=== PATIENT | male | born 1955 | race Caucasian/White ===

== ENCOUNTER 2022-08-28 08:00 | Outpatient (RCR) | payer MEDICARE, OTHER, SELFPAY ==
--- NOTE | 2022-06-15 16:37 | PT.OPE ---
PT [place] [facility] PT [facility] Out[facility] Eval Start: 06/15/22 12:37 Freq: Status: Active Protocol: Document 06/15/22 15:37 LSL (Rec: 06/15/22 15:57 LSL [id number]) E-signed By Rachelle Baires PT Physical Therapy Outpatient Evaluation Insurance Information Insurance Name Medicare B Medical Diagnosis scapular dyskinesia, R shoulder strain Treating Diagnosis pain, joint stiffness Referring MD Wanda Subjective Subjective Pt. reports he has been having R shoulder pain for the past few years. He is L hand dominant but kind of ambidextrous. Pressure in the R interscapular area and UT and the cold makes it tingle in my R 4th and 5th fingers. 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 It is not limiting activity, he just has pain. Massage gun helps. Goes to sleep at night and it all goes away. 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 Precautions Treatment Precautions/Contraindications PMH - 1971 R shoulder bankart repair, R TKA 2013, L RC repair 4-5 y/a, L4-5 fusion 2000, aortic valve replaced 2 years ago and everything was good at 2 year check up Therapy Limitations/Systems Review Not Limited Objective Range of Motion AROM L R flexion 138 123 abduction 151 143 IR (HBB) L1 T12 ER 70 76 Cervical flexion WNL, extension 20%, B LF 25%, R rotation 30%, L rotation 25% Strength Cervical and shoulder 5/5 Palpation tight throughout cervical tissues and R subscap Posture severe kyphosis with forward head and protracted scapulae Other/Pertinent Objective cervical distraction and compression negative + lift off test Assessment Assessment/Impression Pt. is a 66 y/o male who presents with R interscapular and cervical pain with intermittent radicular symptoms in R 4th and 5th digits. He has known C7 stenosis and scapular dyskinesia partially contributed to by increased kyphosis. His right subscapularis is particularly tight. He will benefit from treatment to work on postural strengthening, utilizing manual therapy for joint and soft tissue mobilization. Additionally he owns a Enriquez cervical traction and would benefit from using it more regualrly. Primary Functional Limitations not limited, just completes with pain Plan of Care Rehabilitation Potential Good Physical Therapy Goals SHORT TERM GOALS: (2-3 weeks) 1. Compliant with HEP. 2. Pt. to report decreased frequency of radicular symptoms to less than 1x/week. PENITENTIARY GOALS: 94+ weeks) 1. Pt. able to drive for extended periods of time with pain less than 2/10. Coordination/Communication With Referral Source Treatment Plan/Direct Interventions Joint Mobilization,Manual Therapy,Neuromuscular Re-ed, Therapeutic Exercises Frequency/Duration 1x/wk 4 weeks Patient Will Be Discharged From Therapy Independent w/HEP, Independently Progressing Evaluation Billing Untimed Code Treatment Minutes 25 Complexity Low Certification Information Physician Comment/Change : Physician NPI Number #
== END 2022-10-23 16:24 | disposition home or self-care (01) ==
PROVIDERS: PCP Family Medicine; Visit Provider Orthopaedic Surgery Sports Medicine
DX: G25.89 Other specified extrapyramidal and movement disorders (principal); Z51.89 Encounter for other specified aftercare
CPT/HCPCS: 97110; 97140; 97161

== ENCOUNTER 2022-10-19 08:23 | Outpatient (CLI) | payer OTHER, SELFPAY ==
--- NOTE | 2022-10-19 12:00 | CRLHL7_ITS ---
For Patients: As a result of the Century Cures Act, medical imaging exams and procedure reports are released immediately into your electronic medical record. You may view this report before your referring provider. If you have questions, please contact your health care provider. HISTORY: 67-year-old male. Status post right total knee arthroplasty in December 2010. TECHNIQUE: 25.5 millicuries of [id number] was injected intravenously. Three phase images of the knees were obtained. FINDINGS: The blood flow and blood pool images demonstrate subtle hyperemia surrounding the right knee. The delayed images demonstrate a right total knee replacement. There is abnormally increased uptake adjacent to the prosthetic components. This is probably greatest adjacent to the femoral and patellar components. These findings are greater than expected almost 12 years post TKA and are suspicious for loosening. Subtle uptake adjacent to the left tibial tubercle is consistent with mild inflammatory/arthritic change. IMPRESSION: There are findings suspicious for loosening of the right knee prosthesis. Dictated by Maico Thurman MD @ 10/19/2022 12:31:59 PM (Electronically Signed)
== END 2022-10-19 08:24 | disposition home or self-care (01) ==
PROVIDERS: PCP Family Medicine; Visit Provider Orthopaedic Surgery Sports Medicine
DX: M25.561 Pain in right knee (principal); T84.032A Mechanical loosening of internal right knee prosthetic joint, initial encounter
CPT/HCPCS: 78315; A9503

== ENCOUNTER 2023-06-11 09:00 | Outpatient (RCR) | payer MEDICARE, OTHER, SELFPAY ==
--- NOTE | 2023-04-30 17:18 | PT.OPE ---
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 fell and landed on R arm. I just want to be able to not wake up in the middle of the night. I am waking up 2-3x/ night and I can't lay on my R side and most of the time when I am waking up I am on the right side. Pt. is retired. I want to be able golf in the spring and maybe the fall. Constant ache. Pain Comments 03/15 worst, 09/15 best Date of Last Physician Visit 04/24/23 Current Work Status Retired Preferred Name Victor M Precautions Therapy Limitations/Systems Review Not Limited Objective Range of Motion AROM R L flexion 135 133 abduction 145 130 IR (HBB) T11 T10 ER 75 75 PROM flexion 165 abduction 153 IR 70 ER 85 Cervical flexion WFL, extension 50%, B LF 20%, L rotation 30%, R rotation 50% Strength Shoulder R 5/5 throughout but unable to achieve position for lower trap testing due to lateral and posterior rib pain , L 5/5 Palpation R posterior cuff tender, B lower thoracic paraspinals, rhomboid, middle and lower trap tight and tender on R only Posture Increased thoracic kyphosis, dowagers hump, forward head Other/Pertinent Objective Joint Play - very tight in the R upper and lower thoracic region Assessment Assessment/Impression Pt. is a 67 y/o male who presents with limitations in R shoulder use and the ability to sleep without waking due to pain after sustaining a fall and landing on an outstretched R arm. He had pre-existing shoulder issues that had resolved with therapy last year or early this year and seems to have acute on chronic R shoulder pain currently that may be more indicative of his OA than anything with RC as he is strong in MMT. He does however have limitations overhead which are partially due to his cervical and thoracic spinal posture. He will benefit from therapy to restore ROM and improve strength of entire upper quarter when above 90 degrees. Primary Functional Limitations golf, reaching overhead, using R arm in ADLs, sleeping Plan of Care Rehabilitation Potential Good Physical Therapy Goals SHORT TERM GOALS: (2-3 weeks) 1. Pt to have increased AROM overhead by 10 degrees. 2. Pt. able to sleep through the night with waking 1x/less. M[employer] GOALS: (4+ weeks) 1. Pt. to have improved AROM to 150 or more of elevation with pain less than 2/10. 2. Pt. able to sleep without waking due to pain. 3. Pt. able to achieve testing position for R lower trap with 3+/5 or greater strength. 4. Pt. able to golf next spring. Coordination/Communication With Referral Source Treatment Plan/Direct Interventions Heat,Joint Mobilization,Manual Therapy,Neuromuscular Re-ed, Self-Care/Home Management, Therapeutic Exercises Frequency/Duration 2x/week 4 weeks Patient Will Be Discharged From Therapy Completion of LTG(s),Skills Plateau,Independent w/HEP, Independently Progressing Evaluation Billing Untimed Code Treatment Minutes 40 Complexity Low Certification Information Initial Certification Date 04/30/23 Ending Certification Date 06/29/23 Provider Signature Shows Agreement With POC & Medical Necessity Physician Signature & Date Requested Please Sign/Date Here Physician Comment/Change : Physician NPI Number #
== END 2023-08-29 07:40 | disposition home or self-care (01) ==
PROVIDERS: PCP Family Medicine; Visit Provider Orthopaedic Surgery Sports Medicine
DX: M75.101 Unspecified rotator cuff tear or rupture of right shoulder, not specified as traumatic (principal); Z51.89 Encounter for other specified aftercare
CPT/HCPCS: 97032; 97110; 97140; 97161

== ENCOUNTER 2025-06-03 07:37 | Day surgery (SDC) | payer MEDICARE, SELFPAY ==
[2025-06-03] VITALS (30 sets, daily range): BP systolic 83–136; BP diastolic 55–91; PULSE 60–76; RESP 12–20; TEMP 35–36.9; O2SAT 96–100; BMI 28.0
[2025-06-03] MEDS: ACETAMINOPHEN 500 MG TABLET 1000 MG PO ×3 (08:35→21:33)
[2025-06-03] MEDS: LACTATED RINGERS 1000 ML 1,000 ML 100 ML IV (09:03)
[2025-06-03] MEDS: MIDAZOLAM HCL 1 MG/ML inj IVP (09:07)
--- NOTE | 2025-06-03 09:23 | SUR.PREOP ---
TIME?OUT:?904 PT/RN/MDA?VERIFICATION?OF?SURGICAL?SITE,?PROCEDURE,?AND?CONSENT OBTAINED?PRIOR?TO?INVASIVE?PROCEDURE. all in agreement
--- NOTE | 2025-06-03 09:29 | W.PM.H&PU ---
History & Physical Update History & Physical Update H&P Reviewed and patient assessed: No changes noted
--- NOTE | 2025-06-03 09:31 | CRLHL7_ITS ---
For Patients: As a result of the Cures Act, medical imaging exams and procedure reports are released immediately into your electronic medical record. You may view this report before your referring provider. If you have questions, please contact your health care provider. Indication: Postop Technique: Two views left knee Findings/Impression: Hardware from a left total knee arthroplasty is in satisfactory position. Bone alignment is normal. No sign of acute fracture. Postop changes are within normal limits. Dictated by Ty Elizondo MD @ 06/03/2025 1:02:41 PM (Electronically Signed)
[2025-06-03] MEDS: LACTATED RINGERS 1000 ML 1,000 ML 125 ML IV (09:45)
[2025-06-03] MEDS: TRANEXAMIC ACID 100 MG/ML INJ 1000 MG IV (09:50)
--- NOTE | 2025-06-03 10:55 | PM.ORPRC ---
Procedure Note Date of procedure: 06/03/25 Procedure: PREOPERATIVE DIAGNOSIS: 1. Left knee osteoarthritis, primary, severe POSTOPERATIVE DIAGNOSIS: 1. Left knee osteoarthritis, primary, severe PROCEDURE: 1. Left total knee arthroplasty, Press-Fit, Rotating Platform - No tourniquet SURGEON: Juwan Muñoz MD. COUNTY ADMINISTRATOR: Venkat Herring PA-C - Of note, a skilled assistant women's rowing coach was critical for this case to aid in patient positioning, tissue retraction, limb manipulation/positioning, and closure. ANESTHESIA: Spinal anesthetic EBL: 100ml IMPLANTS: DePuy J&J uncemented TKA - Attune PS Press-Fit femur size 8 Size 7 Press-Fit tibia Rotating Platform 5 mm RP poly spacer 38 mm Affixium patella TOURNIQUET: None COMPLICATIONS: None evident INDICATIONS: The patient is a pleasant 69-year-old male who has experienced severe left knee pain and difficulty bearing weight. Workup included x-rays which revealed severe osteoarthrosis in the knee. Given the deformity, the dysfunction, and the pain, as well as the failure of nonoperative management, recommendation was made for surgery. FINDINGS: Full-thickness chondral loss diffusely throughout the medial compartment. To lesser degree patellofemoral and lateral compartments. General discuss pathology medial greater than lateral. Large effusion upon entering the joint. DESCRIPTION OF PROCEDURE: Following a thorough discussion of risks, benefits, and alternatives consent was obtained and the left knee was marked. The patient was brought to the operating room and placed supine on the operating table. Induction of anesthesia was undertaken. 2 g IV Ancef and 1 g tranexamic acid was administered within 1 hr of incision preoperatively. Proper time-out was performed identifying proper patient, site, procedure. The operative extremity was prepped and draped in the appropriate sterile fashion using ChloraPrep after the patient was positioned supine with all bony prominences well padded. A longitudinal, anterior, midline skin incision was made starting approximately 3cm proximal to the superior pole of the patella and advanced distal to the tibial tubercle. A sub vastus approach was utilized. After mobilizing the patella, retropatellar fatpad was resected and the synovium in the suprapatellar pouch excised to visualize the anterior femoral cortex. Patellar prep showed initial measurement/thickness of 25 mm. It was resected back to approximately 15 mm. The patella prep was completed with drilling and a trial placed followed by a protector plate until final component implantation. Femoral preparation was performed via an intramedullary guide. Step drill allowed access into the femoral canal. The distal cutting guide was placed with 5? of valgus and 11 mm cut on the distal femur. Femur was sized using a posterior referencing guide in 3? of external rotation. This was found to have a best fit with the sizing noted above. The 4 in 1 cutting block was then placed, and the distal femur shaped accordingly. The box cut was then completed. We turned our attention to the proximal tibia. Extramedullary guide was utilized for cutting with the goal of being 90 degree cut from the mechanical axis of the tibia in the varus/valgus plane utilizing tibial crest as the primary alignment. Initially a 3 mm resection was performed from the medial tibial plateau. Ultimately, balancing was achieved in both flexion and extension in both varus and valgus. The knee was able to achieve full extension comfortably. It was sized to be a best fit with as noted above. At this stage, trial implants were removed, the tibia and femoral and patellar components were opened and inserted. The real poly spacer was opened and inserted. A 3 min Betadine soak performed. Finally, a final irrigation round with normal saline was performed. Closure performed with 0 PDS and #0 Stratafix for the quad tendon/retinaculum. 2-0 Vicryl/Stratafix for the subcutaneous and 4-0 Monocryl for subcuticular closure. Dressings were applied and the patient was awoken from anesthesia and transferred the PACU in stable condition. A skilled assistant women's rowing coach was critical for this case to aid in patient positioning, tissue retraction, bone exposure, limb manipulation/positioning, patient safety, and closure. PLAN: 1. Weight bear as tolerated operative extremity. 2. 23 hr perioperative antibiotics. 3. Ice. 4. PT/OT consults for ambulation assistance/mobility education. 5. Social work consult for discharge planning. 6. DVT prophylaxis with at SCDs, and aspirin twice daily.
--- NOTE | 2025-06-03 11:45 | P.ANES_ITS ---
Anesthesia Charges Start Date/Time Anesthesia Start Date: 06/03/25 Anesthesia Start Time: 09:17 Stop Date/Time Anesthesia Stop Date: 06/03/25 Anesthesia Stop Time: 11:43 Coding CPT Codes CPT Codes: ANESTH KNEE ARTHROPLASTY - 47139 ([id number]) P3 - PATIENT W/SEVERE SYS DISEASE, QK - CONTROL SYSTEMS ENGINEER 2-4 CNCRNT ANES PROC
--- NOTE | 2025-06-03 11:45 | W.ANESCHARGE ---
Anesthesia Charges Start Date/Time Anesthesia Start Date: 06/03/25 Anesthesia Start Time: 09:17 Stop Date/Time Anesthesia Stop Date: 06/03/25 Anesthesia Stop Time: 11:43 Coding CPT Codes CPT Codes: ANESTH KNEE ARTHROPLASTY - 18847 ([id number]) P3 - PATIENT W/SEVERE SYS DISEASE, QK - MERGERS AND ACQUISITIONS MANAGER 2-4 CNCRNT ANES PROC
--- NOTE | 2025-06-03 11:49 | P.NB_ITS ---
Nerve Block Nerve Block Time Seen by Provider: 09:05 Date Seen: 06/03/25 Type of block requested by surgeon for post-operative analgesia: adductor canal Side: left Time out performed: Yes Verification of patient name: Yes Verification of date of : Yes Site marking: site marked Name of person performing procedure: Ulisses Continuous monitoring Was continuous monitoring of O2 sat, B/P, music grapher, recorded every 15 minutes?: Yes Procedure Checklist: sterile prep, needles and gloves Ultrasound guided. Images saved: Yes Medications given in 5ml increments after negative aspiration: Marcaine %: 0.25 mL: 15 Needle gauge: 20 Precedex (mcg): 25 Patient tolerated procedure well: Yes Block Charges Block Charge (with Pro Fee): Femoral Nerve Use of Ultrasound Machine for Block: Yes- US Guidance/pain block
--- NOTE | 2025-06-03 11:49 | P.NB_ITS ---
Nerve Block Nerve Block Time Seen by Provider: 09:05 Date Seen: 06/03/25 Type of block requested by surgeon for post-operative analgesia: geniculars Side: left Time out performed: Yes Verification of patient name: Yes Verification of date of : Yes Site marking: site marked Name of person performing procedure: Ulisses Continuous monitoring Was continuous monitoring of O2 sat, B/P, quality assurance monitor body, recorded every 15 minutes?: Yes Procedure Checklist: sterile prep, needles and gloves Ultrasound guided. Images saved: Yes Medications given in 5ml increments after negative aspiration: Marcaine %: 0.25 mL: 9 Needle gauge: 25 Patient tolerated procedure well: Yes Block Charges Block Charge (with Pro Fee): Genicular Nerve Block
--- NOTE | 2025-06-03 11:50 | P.ANES_ITS ---
Anesthesia Charges Start Date/Time Anesthesia Start Date: 06/03/25 Anesthesia Start Time: 09:17 Stop Date/Time Anesthesia Stop Date: 06/03/25 Anesthesia Stop Time: 11:43 Coding CPT Codes CPT Codes: ANESTH KNEE ARTHROPLASTY - 72733 ([id number]) QK - CORPORATE COMPLIANCE DIRECTOR 2-4 CNCRNT ANES PROC, QX - GLUE SIZE MACHINE OPERATOR SVC W/ MD MED DIRECTION, P3 - PATIENT W/SEVERE SYS DISEASE
--- NOTE | 2025-06-03 11:50 | W.ANESCHARGE ---
Anesthesia Charges Start Date/Time Anesthesia Start Date: 06/03/25 Anesthesia Start Time: 09:17 Stop Date/Time Anesthesia Stop Date: 06/03/25 Anesthesia Stop Time: 11:43 Coding CPT Codes CPT Codes: ANESTH KNEE ARTHROPLASTY - 43512 ([id number]) QK - HOUSEKEEPING WORKER 2-4 CNCRNT ANES PROC, QX - DAT INSTRUCTOR SVC W/ MD MED DIRECTION, P3 - PATIENT W/SEVERE SYS DISEASE
[2025-06-03] MEDS: LACTATED RINGERS 1000 ML 1,000 ML 200 ML IV (11:58)
--- NOTE | 2025-06-03 15:51 | PM.IMCN1 ---
Date of Consult Patient: Tosin Patient Consult date: 06/03/25 Requesting Physician: Orthopedics Primary Care Provider: Wojciech Womack MD Consult Narrative Reason for consult: Medical management of comorbidities Narrative: Wilton Maier is a 69 year old male who presented to the hospital today for an elective left TKA with Dr. Muñoz of Orthopedic surgery. There were no surgical or anesthetic complications noted during procedure. Patient's H&P reviewed, PCP is Dr. Womack at the [facility]. Past medical history significant for: CAD (history of occluded RCA, reassuring stress test for ischemia 10/2024), SAVR 2019, BPH s/p HoLEP 04/2025, GERD. History of urinary retention s/p HoLEP in April, history of nausea and hallucinations with opiates in the past. Postoperative plan: Home with (RN). Review of Systems Status of ROS: Reports: 10 or more systems reviewed and unremarkable except as noted in History and below PFSH PFS Medical History (Updated 06/03/25 @ 16:26 by Karol Chowdary MD) Thoracic or lumbosacral neuritis or radiculitis, unspecified Pulmonary nodule ?R91.1 - Solitary pulmonary nodule (ICD-10) PIN (prostatic intraepithelial neoplasia) ?N42.31 - Prostatic intraepithelial neoplasia (ICD-10) Peyronie's disease ?N48.6 - Induration penis plastica (ICD-10) Pericardial effusion ?I31.39 - Other pericardial effusion (noninflammatory) (ICD-10) Mixed hyperlipidemia ?E78.2 - Mixed hyperlipidemia (ICD-10) Esophageal reflux ?K21.9 - Gastro-esophageal reflux disease without esophagitis (ICD-10) Displacement of lumbar intervertebral disc without myelopathy ?M51.26 - Other intervertebral disc displacement, lumbar region (ICD-10) Displacement of cervical intervertebral disc without myelopathy ?M50.20 - Other cervical disc displacement, unspecified cervical region (ICD-10) Chronic pain syndrome ?G89.4 - Chronic pain syndrome (ICD-10) CAD (coronary artery disease) ?I25.10 - Atherosclerotic heart disease of [place] coronary artery without angina pectoris (ICD-10) Aortic stenosis ?I35.0 - Nonrheumatic aortic (valve) stenosis (ICD-10) Surgical History (Updated 06/03/25 @ 16:26 by Karol Chowdary MD) History of arthroplasty of left knee (06/03/25) ?Z96.652 - Presence of left artificial knee joint (ICD-10) History of prostate surgery (04/16/25) ?Z98.890 - Other specified postprocedural states (ICD-10) Aortic valve replaced (12/09/19) ?Z95.2 - Presence of prosthetic heart valve (ICD-10) H/O shoulder surgery (~1971) ?Z98.890 - Other specified postprocedural states (ICD-10) Status post total right knee replacement (12/13/10) ?Z96.651 - Presence of right artificial knee joint (ICD-10) Status post arthroscopy of left shoulder (09/19/13) ?Z98.890 - Other specified postprocedural states (ICD-10) S/P right knee arthroscopy (09/23/98) ?Z98.890 - Other specified postprocedural states (ICD-10) History of lumbar surgery (05/22/01) ?Z98.890 - Other specified postprocedural states (ICD-10) S/P lumbar fusion (2000) ?Z98.1 - Arthrodesis status (ICD-10) Social History (Reviewed 04/24/23 @ 08:59 by Radha Vazquez ~ [facility], [facility]) What is your current living situation?: I presently have a place to live Problems where you live: no known problems In past 12 months, lack of transportation kept you from medical appts, meetings, work, or getting things needed for daily living: no In the past 12 mos, have been you worried that your food would run out before you had money to buy more?: never true In the past 12 mos, the food you bought just didn't last and you didn't have money to buy more?: never true Smoking Status: Former smoker What tobacco products do you use: cigarettes Smoking quit date/years: >15 years ago Do you use any of these nicotine containing products: None Second hand tobacco smoke exposure: No How often do you have a drink containing alcohol: 2-3 times a week How many standard drinks containing alcohol do you have on a typical day: 1 or 2 AUDIT-C Alcohol total score: 3 Non-prescribed substance use: denies use Meds Home Medications and Allergies Home Medications ?Medication ?Instructions ?Recorded ?Confirmed ?Type atorvastatin 80 mg tablet 80 mg PO HS 06/13/22 06/03/25 History fluticasone propionate 50 2 spray intranasal DAILY 06/13/22 06/03/25 History mcg/actuation nasal spray,suspension metoprolol succinate 100 mg 100 mg PO DAILY 06/13/22 06/03/25 History tablet,extended release 24 hr ezetimibe 10 mg tablet 10 mg PO DAILY 10/05/22 06/03/25 History aspirin 81 mg tablet,delayed 81 mg PO QDAY 02/26/25 06/03/25 History release (Adult Aspirin Regimen) Held on 06/03/25. Instructions: Resume on 07/05/25. We will prescribe aspirin 81mg twice daily for 1 month pantoprazole 20 mg tablet,delayed 20 mg PO DAILY 05/04/25 06/03/25 History release acetaminophen 500 mg capsule 500 - 1,000 mg (1 - 2 x 500 mg) PO 06/03/25 Rx Q6H PRN #100 caps aspirin 81 mg tablet,delayed 81 mg PO BID #60 tabs 06/03/25 Rx release ibuprofen 400 mg tablet (IBU) 400 mg PO Q6H PRN 06/03/25 06/03/25 History Held on 06/03/25. Instructions: Resume on 07/05/25. oxycodone 5 mg tablet 2.5 - 5 mg (0.5 - 1 x 5 mg) PO 06/03/25 Rx Q4-6H PRN pain #42 tabs sennosides 8.6 mg-docusate sodium 1 - 4 tab-cap (1 - 4 x 8.6-50 mg) 06/03/25 Rx 50 mg tablet (Senna-S) PO BID PRN constipation #60 tabs Allergies Allergy/AdvReac Type Severity Reaction Status Date / Time oxycodone AdvReac Severe Hallucinati Verified 05/04/25 08:17 ng Exam Narrative: Exam Narrative: GEN: Alert and oriented, nontoxic HEENT: EOMIs bilaterally, no scleral icterus CV: RRR, + systolic murmur without concerning features R: LCTA bilaterally Ext: wwp, no concerning edema Skin: No concerning skin lesions or rashes on exposed skin Neuro: Nonfocal Psych: Appropriate Const: Vital Signs, click to edit/add: Vital Signs - 24 hr 06/03/25 08:45 06/03/25 09:01 06/03/25 09:09 Temperature 98.5 F Pulse Rate 68 67 69 Pulse Rate [Right] Respiratory Rate 16 16 16 Blood Pressure 130/81 136/91 H 127/88 Blood Pressure [Ri ght Arm] Pulse Oximetry 97 96 96 Oxygen Delivery Me thod Room Air Nasal Cannula Nasal Cannula Oxygen Flow Rate 2 2 06/03/25 11:38 06/03/25 11:45 06/03/25 11:50 Temperature 97.5 F L Pulse Rate 74 68 69 Pulse Rate [Right] Respiratory Rate 14 14 14 Blood Pressure 83/58 L 97/64 104/64 Blood Pressure [Ri ght Arm] Pulse Oximetry 97 100 100 Oxygen Delivery Me thod OxyMask OxyMask OxyMask Oxygen Flow Rate 10 10 6 06/03/25 11:55 06/03/25 12:00 06/03/25 12:05 Temperature 97.3 F L Pulse Rate 70 67 70 Pulse Rate [Right] Respiratory Rate 12 14 16 Blood Pressure 99/62 118/74 106/67 Blood Pressure [Ri ght Arm] Pulse Oximetry 98 98 99 Oxygen Delivery Me thod Room Air Room Air Room Air Oxygen Flow Rate 06/03/25 12:10 06/03/25 12:14 06/03/25 12:25 Temperature 97.2 F L 96.2 F L Pulse Rate 68 69 Pulse Rate [Right] 60 Respiratory Rate 14 16 18 Blood Pressure 107/69 111/77 Blood Pressure [Ri ght Arm] 99/70 Pulse Oximetry 100 99 97 Oxygen Delivery Me thod Room Air Room Air Room Air Oxygen Flow Rate 06/03/25 12:30 06/03/25 12:45 06/03/25 13:00 Temperature 96.2 F L Pulse Rate Pulse Rate [Right] 64 65 65 Respiratory Rate 18 Blood Pressure Blood Pressure [Ri ght Arm] 106/65 108/77 114/78 Pulse Oximetry 97 96 96 Oxygen Delivery Me thod Room Air Room Air Room Air Oxygen Flow Rate 06/03/25 13:15 Temperature 96.8 F L Pulse Rate Pulse Rate [Right] 65 Respiratory Rate 18 Blood Pressure Blood Pressure [Ri ght Arm] 91/74 Pulse Oximetry 97 Oxygen Delivery Me thod Room Air Oxygen Flow Rate Assessment and Plan Assessment and plan (1) History of arthroplasty of left knee: Problem comment: Left total knee arthroplasty (06/03/25, Dr. Muñoz) Status: Acute (2) CAD (coronary artery disease): Status: Acute Plan - pain management and prophylaxis per orthopedic surgery team - continue home medications for comorbidities - anticipate routine postoperative course - updated bedside, questions answered
[2025-06-03] MEDS: 0.9 % SODIUM CHLORIDE 500 ML 500 ML IV (16:25)
[2025-06-03] MEDS: CEFAZOLIN 2 GM in 0.9 % SODIUM CHLORIDE Mini-bag 100 ML IVPB (18:05)
--- NOTE | 2025-06-03 19:00 | PC.NURSE ---
End of Shift Note 258 Patient has been very pleasant and cooperative throughout the shift. Left Knee replacement. Patient had a vaso vagal episode while sitting on toilet for the first time. Fluid bolus give and patient has been VSS since then. Afebrile. A&Ox4. Uses call light appropriately. Patient resting in bed. Nemo currently in the room with him. Call light within reach.
[2025-06-04] MEDS: CEFAZOLIN 2 GM in 0.9 % SODIUM CHLORIDE Mini-bag 100 ML IVPB (00:49)
[2025-06-04 03:00] VITALS: BP 121/71; RESP 18; TEMP 36.7; O2SAT 96
[2025-06-04] MEDS: ACETAMINOPHEN 500 MG TABLET 1000 MG PO ×2 (04:16→11:39)
[2025-06-04 06:33] LABS: Hematocrit* 33.0 % (37.0-53.0); Hemoglobin* 11.2 gm/dL (13.5-17.5); Immature Granulocytes Abs Auto 0.03 K/uL (0.00-0.30); Immature Granulocytes Pct Auto 0.3 %; Mean Corpuscular HGB Conc 34 gm/dL (32-36); Mean Corpuscular Hemoglobin 33 pg (26-34); Mean Corpuscular Volume 96 fL (80-100); RDW Coefficient of Variation % 13.1 % (11.5-15.5); Red Blood Count* 3.44 m/uL (4.30-5.90); White Blood Count* 9.48 K/uL (4.50-11.00)
[2025-06-04 06:45] LABS: Lymphocytes Absolute Auto 0.50 K/uL (0.90-2.90); Slide Review Reflex No
[2025-06-04 06:46] LABS: Chloride* 103 mmol/L (96-114); Potassium* 4.2 mmol/L (3.6-5.1); Sodium* 134 mmol/L (135-149)
[2025-06-04 06:49] LABS: Anion Gap 4 mEq/L (7-15); Blood Urea Nitrogen* 14 mg/dL (7-30); Calcium* 8.7 mg/dL (8.4-10.6); Carbon Dioxide* 27 mmol/L (20-32); Creatinine* 0.6 mg/dL (0.5-1.5); Est. Creatinine Clearance* 74.25; Estimated Glomerular Filt Rate 104 ml/min; Glucose* 128 mg/dL (60-115)
[2025-06-04 07:00] VITALS: BP 111/60; PULSE 70; RESP 18; TEMP 36.3; O2SAT 96
[2025-06-04] MEDS: SENNOSIDES 1 TAB TABLET 2 TAB PO (08:40)
[2025-06-04] MEDS: EZETIMIBE 10 MG TABLET PO (08:40)
[2025-06-04] MEDS: ASPIRIN 81 MG TABLET EC PO (08:41)
--- NOTE | 2025-06-04 09:25 | P.ORPN_ITS ---
Subjective Subjective Date Seen: 06/04/25 Principal diagnosis: Status postop day 1 left total knee arthroplasty Interval history: Patient reports doing okay. No acute events over night. Pain primarily to the posterior knee and posterior distal hamstring region. Pain managed with scheduled and PRN medications, ice. States that the Ativan received last night was very helpful in addition to oxycodone. He is requesting prescription for Ativan for home. DVT prophylaxis: 81 mg aspirin by mouth twice daily, SCDs, walking. Denies fevers, chills, aches, N/V, CP, SOB/MAYA, or lightheadedness. He inquires about taking aspirin at lunchtime (a 3rd dose) to prevent blood clots. Also inquires if he should take a stronger blood thinner to prevent blood clots insert of aspirin. Patient has no personal or family history of blood clots, factor 5 Leiden disease, or protein S, C deficiencies. History of Coumadin use for cardiac procedure. Ortho Exam Narrative Exam Narrative: -Patient appears comfortable; no apparent acute distress -Alert and oriented times 3 -Operative knee moderately swollen; soft tissues supple; no ecchymosis; no erythematous streaking Warmth appropriate -Surgical dressing clean, dry, intact; no drainage -Bilateral calfs soft; no significant swelling, edema, tenderness, erythema, discoloration, warmth, or palpable cords -2+ DP/PT pulses, intact dermatomes and myotomes distally (5/5 strength) Const Vital Signs, click to edit/add: Vital Signs - 24 hr 06/03/25 11:38 06/03/25 11:45 06/03/25 11:50 Temperature 97.5 F L Pulse Rate 74 68 69 Pulse Rate [Left Pulse Oximeter] Pulse Rate [Right] Respiratory Rate 14 14 14 Blood Pressure 83/58 L 97/64 104/64 Blood Pressure [Right Arm] Pulse Oximetry 97 100 100 Oxygen Delivery Method OxyMask OxyMask OxyMask Oxygen Flow Rate 10 10 6 06/03/25 11:55 06/03/25 12:00 06/03/25 12:05 Temperature 97.3 F L Pulse Rate 70 67 70 Pulse Rate [Left Pulse Oximeter] Pulse Rate [Right] Respiratory Rate 12 14 16 Blood Pressure 99/62 118/74 106/67 Blood Pressure [Right Arm] Pulse Oximetry 98 98 99 Oxygen Delivery Method Room Air Room Air Room Air Oxygen Flow Rate 06/03/25 12:10 06/03/25 12:14 06/03/25 12:25 Temperature 97.2 F L 96.2 F L Pulse Rate 68 69 Pulse Rate [Left Pulse Oximeter] Pulse Rate [Right] 60 Respiratory Rate 14 16 18 Blood Pressure 107/69 111/77 Blood Pressure [Right Arm] 99/70 Pulse Oximetry 100 99 97 Oxygen Delivery Method Room Air Room Air Room Air Oxygen Flow Rate 06/03/25 12:30 06/03/25 12:45 06/03/25 13:00 Temperature 96.2 F L Pulse Rate Pulse Rate [Left Pulse Oximeter] Pulse Rate [Right] 64 65 65 Respiratory Rate 18 Blood Pressure Blood Pressure [Right Arm] 106/65 108/77 114/78 Pulse Oximetry 97 96 96 Oxygen Delivery Method Room Air Room Air Room Air Oxygen Flow Rate 06/03/25 13:15 06/03/25 13:45 06/03/25 14:15 Temperature 96.8 F L Pulse Rate Pulse Rate [Left Pulse Oximeter] 64 Pulse Rate [Right] 65 66 Respiratory Rate 18 Blood Pressure Blood Pressure [Right Arm] 91/74 118/84 113/66 Pulse Oximetry 97 96 97 Oxygen Delivery Method Room Air Room Air Room Air Oxygen Flow Rate 06/03/25 14:48 06/03/25 15:00 06/03/25 15:00 Temperature 95 F L Pulse Rate Pulse Rate [Left Pulse Oximeter] 67 Pulse Rate [Right] 76 Respiratory Rate 20 Blood Pressure Blood Pressure [Right Arm] 98/55 L Pulse Oximetry 96 97 Oxygen Delivery Method Room Air Oxygen Flow Rate 06/03/25 15:00 06/03/25 15:15 06/03/25 16:23 Temperature Pulse Rate Pulse Rate [Left Pulse Oximeter] 67 Pulse Rate [Right] Respiratory Rate Blood Pressure Blood Pressure [Right Arm] 120/81 97/79 Pulse Oximetry 96 97 Oxygen Delivery Method Room Air Room Air Oxygen Flow Rate 06/03/25 16:30 06/03/25 16:45 06/03/25 17:00 Temperature Pulse Rate Pulse Rate [Left Pulse Oximeter] Pulse Rate [Right] Respiratory Rate Blood Pressure Blood Pressure [Right Arm] 94/71 110/65 122/83 Pulse Oximetry Oxygen Delivery Method Oxygen Flow Rate 06/03/25 17:15 06/03/25 18:15 06/03/25 18:48 Temperature 98 F 97.2 F L Pulse Rate Pulse Rate [Left Pulse Oximeter] Pulse Rate [Right] Respiratory Rate Blood Pressure Blood Pressure [Right Arm] 118/60 109/86 109/86 Pulse Oximetry 97 96 Oxygen Delivery Method Room Air Room Air Oxygen Flow Rate 06/03/25 19:00 06/03/25 23:00 06/03/25 23:00 Temperature 97.7 F Pulse Rate Pulse Rate [Left Pulse Oximeter] Pulse Rate [Right] 76 Respiratory Rate 18 Blood Pressure Blood Pressure [Right Arm] 123/75 Pulse Oximetry 96 96 96 Oxygen Delivery Method Room Air Room Air Oxygen Flow Rate 06/03/25 23:00 06/04/25 03:00 06/04/25 07:00 Temperature 98.4 F 98.1 F Pulse Rate Pulse Rate [Left Pulse Oximeter] Pulse Rate [Right] 76 Respiratory Rate 18 18 Blood Pressure Blood Pressure [Right Arm] 118/63 121/71 Pulse Oximetry 96 96 96 Oxygen Delivery Method Room Air Room Air Room Air Oxygen Flow Rate Assessment and Plan Assessment and plan (1) History of arthroplasty of left knee: Problem details: Left total knee arthroplasty (06/03/25, Dr. Muñoz) Status: Acute (2) CAD (coronary artery disease): Status: Acute Plan - Complete 23 hour perioperative antibiotics. - PT/OT consult for education and assistance. - Social work consult for discharge planning - Prescribed analgesics as needed - he has not had any issues with oxycodone postoperatively, as he has previously had for other procedures. Thus, wants to continue on this medication. However, he inquires about taking Ativan only or both together. I advised that we should not prescribed both these for discharge since we cannot monitor his vitals at home. Also, Ativan alone will likely not be affective at managing his postop pain. Encouraged scheduled acetaminophen 1000 mg every 6 hours, and oxycodone as needed. Avoid NSAIDs at this time, which he was instructed to do by human resources safety manager. He will call us if there are any concerns with pain management. - DVT prophylaxis: 81 mg aspirin by mouth twice daily, walking, and SCDs - Anticipation is for discharge to home with today 06/04/2025 if the patient remains medically stable, pain is controlled, and they are safe with mobilization.
--- NOTE | 2025-06-04 12:36 | PC.NURSE ---
End of shift [id number]: Pleasant and cooperative with cares. Pain to left knee well managed with current regimen. Dressing clean, dry and intact. Tolerating ice pack applied. Transfers and ambulates with SBA with walker and GB. Discharge instructions reviewed with patient and spouse. Assisted to private car via w/c at discharge.
== END 2025-06-04 12:26 | disposition home or self-care (01) ==
LOC: OR 07:39 → MEDSURG 09:16
PROVIDERS: Family Medicine; PCP Family Medicine; Visit Provider Orthopaedic Surgery Sports Medicine
PROC: (CPT 27447; principal; 2025-06-03 09:15)
DX: M17.12 Unilateral primary osteoarthritis, left knee (principal); G89.18 Other acute postprocedural pain; I25.10 Atherosclerotic heart disease of native coronary artery without angina pectoris; K21.9 Gastro-esophageal reflux disease without esophagitis; I35.0 Nonrheumatic aortic (valve) stenosis; Z79.82 Long term (current) use of aspirin
CPT/HCPCS: 27447; 01402; 36415; 64447; 64454; 73560; 76942; 80048; 85025; 97110; 97116; 97161; 97165; 97530; 97535; A9270; C1776; J0665; J0690; J1100; J1171; J2250; J2371; J2405; J2704; J3010; J7030; J7120

== ENCOUNTER 2025-07-01 14:02 | Outpatient (CLI) | payer MEDICARE, SELFPAY ==
[2025-07-01 15:54] LABS: Mononuclear WBC Body Fluid* 84 %; Polynuclear WBC Body Fluid* 16 %; RBC, Body Fluid* 27000 Cells/uL; WBC, Body Fluid* 299 Cells/uL
[2025-07-01 15:56] LABS: BF Clarity* Cloudy; BF Total Volume* 9
== END 2025-07-01 14:03 | disposition home or self-care (01) ==
LOC: LAB 14:12
PROVIDERS: PCP Family Medicine; Visit Provider Orthopaedic Surgery
DX: L03.90 Cellulitis, unspecified (principal); Z96.652 Presence of left artificial knee joint
CPT/HCPCS: 36415; 87070; 87075; 87205; 89051; 89060